=== PATIENT | female | born 1970 | race Caucasian/White ===

== ENCOUNTER 2016-10-24 23:34 | Emergency (ER) | payer OTHER ==
[2016-10-25 00:02] LABS: BASOPHIL 0.5 % (0-2); EOSINOPHIL 1.1 % (0-5); HCT 45.1 % (37.0-47.0); HGB 15.8 g/dl (12.5-16.0); LYMPHOCYTE 32.9 % (15-48); MCH 32.7 pg (25.0-31.0); MCV 93.4 fL (78.0-100.0); MONOCYTE 4.6 % (0-12); MPV 9.7 fL (6.0-9.5); NEUTROPHIL 60.9 % (41-80); PLT 418 K/uL (150-400); RBC 4.83 M/uL (4.20-5.40); RDW 13.9 % (11.5-14.0)
[2016-10-25 00:04] LABS: INR 1.04 (0.9-1.2); PROTHROMBIN TIME 13.2 SECONDS (11.7-14.0); PTT 25.2 SECONDS (23.2-31.4)
[2016-10-25 00:06] LABS: D-DIMER < 0.27 ug/mLFEU (0.00-0.41)
[2016-10-25 00:07] LABS: ALBUMIN 4.4 g/dL (3.5-5.0); BILIRUBIN - TOTAL 0.3 mg/dL (0.1-1.0); CREATININE 0.5 mg/dL (0.5-1.0); GLOBULIN (CALCULATION) 3.2 g/dL (2.2-4.2); MAGNESIUM 1.88 mg/dL (1.40-2.10); POTASSIUM 3.8 mmol/L (3.5-5.1); TOTAL PROTEIN 7.6 g/dL (6.4-8.3)
[2016-10-25 00:10] LABS: CKMB 2.22 ng/mL (0.97-4.94); PRO-BNP 296 pg/mL (0-125); TROPONIN T < 0.010 ng/mL
[2016-10-25 00:11] LABS: MYOGLOBIN < 21 ng/mL (26-65)
[2016-10-25 00:45] LABS: AMYLASE 22 U/L (28-100)
[2016-10-25 00:58] LABS: LIPASE 28 U/L (13-60)
== END 2016-10-25 04:07 | disposition other institution (70) ==
LOC: FER 23:34
PROVIDERS: Emergency Medicine Emergency Medical Services
DX: I20.0 Unstable angina (principal); I10 Essential (primary) hypertension; I25.2 Old myocardial infarction; E11.9 Type 2 diabetes mellitus without complications; F17.200 Nicotine dependence, unspecified, uncomplicated; Z98.890 Other specified postprocedural states; Z79.84 Long term (current) use of oral hypoglycemic drugs; Z79.899 Other long term (current) drug therapy
CPT/HCPCS: 36415; 71010; 80053; 82150; 82550; 82553; 83690; 83735; 83874; 83880; 84484; 85025; 85379; 85610; 85730; 93005; J1170; J2270; J2405